=== PATIENT | female | born 1970 | race Caucasian/White ===

== ENCOUNTER 2019-10-11 14:18 | Emergency (ER) | payer MEDICAID ==
[~2019-10-11] VITALS: Ht 154.9 cm; Wt 59.1 kg
[~2019-10-11 14:18] MED LIST: NOCURR
[2019-10-11] MEDS ORDERED: ACETAMINOPHEN 500 MG TABLET PO ONE (16:15)
[2019-10-11 19:25] VITALS: BP 118/78
== END 2019-10-11 19:27 | disposition home or self-care (01) ==
LOC: EMS 14:19
DX: S20.212A Contusion of left front wall of thorax, initial encounter (principal); Z88.0 Allergy status to penicillin; W18.39XA Other fall on same level, initial encounter; Y93.89 Activity, other specified; Y92.89 Other specified places as the place of occurrence of the external cause; Y99.8 Other external cause status

== ENCOUNTER 2023-04-02 09:52 | Emergency (ER) | payer MEDICAID, OTHER ==
[~2023-04-02] VITALS: Ht 154.9 cm; Wt 54.5 kg
[2023-04-02 10:00] VITALS: BP 135/77; PULSE 68; RESP 18; TEMP 98.3
[2023-04-02] MEDS ORDERED: PHENAZOPYRIDINE HCL 100 MG TABLET PO ONE (10:45)
[2023-04-02] MEDS ORDERED: KETOROLAC TROMETHAMINE 30 MG/ML VIAL IVP ONE (10:45)
[2023-04-02] MEDS ORDERED: ACETAMINOPHEN 500 MG TABLET PO ONE (10:45)
[2023-04-02] MEDS ORDERED: CEPHALEXIN MONOHYDRATE 500 MG CAPSULE PO ONE (10:45)
[2023-04-02 10:53] LABS: APPEARANCE,URINE HAZY (CLEAR); BILIRUBIN,URINE NEGATIVE (NEGATIVE); GLUCOSE, URINE (UA) NEGATIVE (NEGATIVE); KETONES,URINE NEGATIVE (NEGATIVE); LEUKOCYTE ESTERASE ,URINE MODERATE (NEGATIVE); NITRATE,URINE NEGATIVE (NEGATIVE); OCCULT BLOOD,URINE LARGE (NEGATIVE); PH,URINE 6.5 (5.0-8.0); PROTEIN,URINE TRACE mg/dL (NEGATIVE); SPECIFIC GRAVITIY, URINE 1.011 (1.003-1.030); UROBILINOGEN,URINE <=1.0 mg/dL (<=1.0)
[2023-04-02 10:58] LABS: BASOPHILS % (AUTO) 0.7 % (0.0-2.0); EOSINOPHILS % (AUTO) 1.1 % (1.0-6.0); HEMATOCRIT 42.3 % (36-46); HEMOGLOBIN 14.7 g/dL (12.0-16.0); LYMPHOCYTES # (AUTO) 2.2 K/uL (1.0-4.8); LYMPHOCYTES % (AUTO) 25.2 % (22.0-44.0); MEAN CORPUSCULAR HEMOGLOBIN 31.2 pg (26.0-34.0); MEAN CORPUSCULAR HGB CONC 34.7 G/dL (31.0-37.0); MEAN CORPUSCULAR VOLUME 90 fL (80-100); MONOCYTES # (AUTO) 0.8 K/uL (0.1-1.0); MONOCYTES % (AUTO) 8.7 % (2.0-9.0); NEUTROPHILS # (AUTO) 5.7 K/uL (1.8-7.7); NEUTROPHILS % (AUTO) 64.3 % (40.0-70.0); PLATELET COUNT (AUTO) 181 K/uL (150-450); RED BLOOD CELL COUNT(AUTO) 4.72 MIL/uL (4.00-5.20); RED CELL DISTRIBUTION WIDTH 12.9 % (11.5-14.5)
[2023-04-02 11:03] LABS: RBC,URINE >100 /HPF (0-2)
[2023-04-02 11:04] LABS: BACTERIA,URINE None Seen /HPF (None Seen)
[2023-04-02 11:05] LABS: RENAL EPITHELIAL CELLS,URINE Few /LPF (None Seen)
[2023-04-02 11:06] LABS: ANION GAP 9 mmol/L (8-16); CALCIUM, TOTAL 9.2 mg/dL (8.8-10.5); CARBON DIOXIDE 28 mmol/L (22-29); CHLORIDE 102 mmol/L (98-107); CREATININE 0.74 mg/dL (0.60-1.30); GLOMERULAR FILTR. RATE CALC > 60 mL/min (>60); GLUCOSE,RANDOM 109 mg/dL (70-110); SODIUM SERUM 139 mmol/L (136-145)
[2023-04-02 11:11] LABS: ALANINE AMINOTRANSFERASE 64 U/L (12-78); ALBUMIN 3.9 g/dL (3.4-5.0); ALKALINE PHOSPHATASE 111 U/L (46-116); ASPARTATE AMINOTRANSFERASE 37 U/L (15-37); BILIRUBIN,TOTAL 0.4 mg/dL (0.1-1.0); TOTAL PROTEIN, SERUM 7.7 g/dL (6.4-8.2)
[2023-04-02] MEDS ORDERED: CEPH-558 PO (11:46)
[2023-04-02] MEDS ORDERED: IBUP-1554 PO (11:46)
[2023-04-02] MEDS ORDERED: PHEN-674 PO (11:46)
== END 2023-04-02 11:56 | disposition home or self-care (01) ==
LOC: EMS 10:19
DX: N39.0 Urinary tract infection, site not specified (principal); Z98.890 Other specified postprocedural states; Z88.0 Allergy status to penicillin
CPT/HCPCS: 99284; 96374; 80053; 81001; 85025; 36415; 87086; 87186; J1885

== ENCOUNTER 2023-04-16 12:30 | Emergency (ER) | payer OTHER ==
[~2023-04-16] VITALS: Ht 149.9 cm; Wt 63.6 kg
[2023-04-16 12:30] VITALS: TEMP 97.9
[~2023-04-16 12:30] MED LIST changes: +CEPH-558 PO; +IBUP-1554 PO; -NOCURR; +PHEN-674 PO
[2023-04-16 13:32] LABS: BASOPHILS % (AUTO) 0.4 % (0.0-2.0); EOSINOPHILS % (AUTO) 1.9 % (1.0-6.0); HEMOGLOBIN 14.9 g/dL (12.0-16.0); LYMPHOCYTES # (AUTO) 2.5 K/uL (1.0-4.8); MEAN CORPUSCULAR HEMOGLOBIN 30.8 pg (26.0-34.0); MEAN CORPUSCULAR HGB CONC 33.9 G/dL (31.0-37.0); MEAN CORPUSCULAR VOLUME 91 fL (80-100); MONOCYTES % (AUTO) 8.3 % (2.0-9.0); NEUTROPHILS # (AUTO) 7.7 K/uL (1.8-7.7); NEUTROPHILS % (AUTO) 67.4 % (40.0-70.0); PLATELET COUNT (AUTO) 224 K/uL (150-450); RED BLOOD CELL COUNT(AUTO) 4.84 MIL/uL (4.00-5.20); RED CELL DISTRIBUTION WIDTH 12.6 % (11.5-14.5)
[2023-04-16 13:35] LABS: ANION GAP 10 mmol/L (8-16); CALCIUM, TOTAL 8.3 mg/dL (8.8-10.5); CARBON DIOXIDE 26 mmol/L (22-29); CHLORIDE 103 mmol/L (98-107); CREATININE 0.89 mg/dL (0.60-1.30); GLOMERULAR FILTR. RATE CALC > 60 mL/min (>60); GLUCOSE,RANDOM 101 mg/dL (70-110); POTASSIUM 3.8 mmol/L (3.5-5.1); SODIUM SERUM 139 mmol/L (136-145)
[2023-04-16 17:03] VITALS: BP 128/78; PULSE 70; RESP 18
[2023-04-16 18:21] LABS: APPEARANCE,URINE CLEAR (CLEAR); BILIRUBIN,URINE NEGATIVE (NEGATIVE); GLUCOSE, URINE (UA) NEGATIVE (NEGATIVE); KETONES,URINE NEGATIVE (NEGATIVE); LEUKOCYTE ESTERASE ,URINE LARGE (NEGATIVE); NITRATE,URINE NEGATIVE (NEGATIVE); OCCULT BLOOD,URINE SMALL (NEGATIVE); PROTEIN,URINE NEGATIVE (NEGATIVE); SPECIFIC GRAVITIY, URINE 1.007 (1.003-1.030); UROBILINOGEN,URINE <=1.0 mg/dL (<=1.0)
[2023-04-16 18:33] LABS: BACTERIA,URINE Few /HPF (None Seen); RBC,URINE 0-2 /HPF (0-2); SQUAMOUS EPITHELIAL CELL,UR Few /LPF (None Seen)
[2023-04-16] MEDS ORDERED: SULF-261 PO (18:33)
[2023-04-16] MEDS ORDERED: SULFAMETHOX/TRIMETH DS 800-160 MG/TABLET PO ONE (18:45)
== END 2023-04-16 18:41 | disposition home or self-care (01) ==
LOC: EMS 12:39
DX: N39.0 Urinary tract infection, site not specified (principal); Z88.0 Allergy status to penicillin; Z87.440 Personal history of urinary (tract) infections; Z98.890 Other specified postprocedural states
CPT/HCPCS: 80048; 81001; 85025; 87086; 87186; 99283

== ENCOUNTER 2023-06-08 08:52 | Emergency (ER) | payer OTHER ==
[~2023-06-08] VITALS: Ht 152.4 cm; Wt 68.2 kg
[~2023-06-08 08:52] MED LIST changes: -CEPH-558 PO; -PHEN-674 PO; +SULF-261 PO
[2023-06-08 09:00] VITALS: TEMP 98.6
[2023-06-08 09:13] LABS: APPEARANCE,URINE CLEAR (CLEAR); BILIRUBIN,URINE NEGATIVE (NEGATIVE); GLUCOSE, URINE (UA) NEGATIVE (NEGATIVE); KETONES,URINE NEGATIVE (NEGATIVE); LEUKOCYTE ESTERASE ,URINE LARGE (NEGATIVE); NITRATE,URINE NEGATIVE (NEGATIVE); OCCULT BLOOD,URINE LARGE (NEGATIVE); PH,URINE 6.5 (5.0-8.0); PROTEIN,URINE TRACE mg/dL (NEGATIVE); SPECIFIC GRAVITIY, URINE 1.005 (1.003-1.030); UROBILINOGEN,URINE <=1.0 mg/dL (<=1.0)
[2023-06-08 09:32] LABS: WBC,URINE 26-50 /HPF (0-5)
[2023-06-08 09:33] LABS: BACTERIA,URINE Moderate /HPF (None Seen); SQUAMOUS EPITHELIAL CELL,UR Rare /LPF (None Seen)
[2023-06-08] MEDS ORDERED: ACET-66 PO (12:37)
[2023-06-08] MEDS ORDERED: CIPR500T10 PO (12:37)
[2023-06-08] MEDS ORDERED: PHEN-674 PO (12:37)
[2023-06-08] MEDS ORDERED: MICO45CR76 VG (12:39)
[2023-06-08 13:36] VITALS: BP 132/87; PULSE 78; RESP 16
== END 2023-06-08 13:38 | disposition home or self-care (01) ==
LOC: EMS 08:57
DX: N39.0 Urinary tract infection, site not specified (principal); Z98.890 Other specified postprocedural states; Z88.0 Allergy status to penicillin
CPT/HCPCS: 81001; 87086; 87186; 99283